=== PATIENT | female | born 1985 | race American Indian/Alaskan Native ===

== ENCOUNTER 2019-07-22 08:32 | Inpatient (IN) | payer OTHER ==
[2019-07-22] MEDS ORDERED: TERBUTALINE 1 MG/1 ML INJ SUB-Q PRN (08:44)
[2019-07-22] MEDS ORDERED: ePHEDrine SULFATE 50 MG/1 ML INJ IV PRN (08:44)
[2019-07-22] MEDS ORDERED: fentaNYL 100 MCG/2 ML INJ IV PRN (08:44)
[2019-07-22] MEDS ORDERED: LIDOCAINE (2%) 20 MG/1 ML VIAL 20 ML MDV INFILTRATI ONE (08:44)
--- NOTE | 2019-07-22 08:58 | History and Physical Report ---
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 (reviewed today): VITAMIN D () PLUS 27-1 MG ORAL TABLET ( VIT-FE FUMARATE-FA) 1 po Current Allergies (reviewed today): * PEANUTS (Critical) * BLUEBERRIES (Critical) * CRANBERRIES (Critical) Laboratory Results Routine Urinalysis Leukocytes: negative Nitrite: negative Urobilinogen: negative Protein: negative Blood: negative Ketone: negative Bilirubin: negative Glucose: negative Urine HCG: positive PHYSICAL EXAM HEENT: PERRLA, normal conjunctiva, external nose and nasal mucosa normal, oropharynx clear Neck/Thyroid: supple, thyroid normal Skin no significant abnormal lesions or rashes Chest: respiratory effort normal, clear to auscultation Breasts: normal without skin changes or masses CV: regular, normal S1-S2, no murmur, no rub, no gallop Abdomen: normal bowel sounds, soft, nontender, no HSM Musculoskeletal: grossly normal ROM in joints, no joint tenderness or muscle weakness Neuro: grossly normal DTRs, sensation, strength, cranial nerves Extremities: no clubbing, cyanosis, or edema 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 Vulva/Vagina: No lesions, normal BUS, normal rugae Cervix: No lesions; no cervical motion tenderness Uterus: normal size and position, midline, mobile Adnexae: no masses or tenderness Rectovaginal: no masses or tenderness Past History - Obstetrical History Expected Date of Delivery: 08/05/19 Actual Gestation: 38 Week(s) 0 Day(s) : 2 Para: 0 Hx # Term Pregnancies: 0 Number of Pregnancies: 0 Spontaneous Abortions: 1 Induced : 0 Number of Living Children: 0 Medications and Allergies Allergies Allergy/AdvReac Type Severity Reaction Status Date / Time No Known Allergies Allergy Unverified 07/22/19 09:05 - Physical Exam Breasts: Positive: deferred Cardiovascular: Regular rate Lungs: Positive: Clear to auscultation Abdomen: Positive: normal appearance, soft, normal bowel sounds. Negative: distention, tenderness Genitourinary (Female): Positive: normal external genitalia Vulva: both: normal Vagina: Positive: normal moisture. Negative: discharge Cervix: Negative: lesion, discharge Uterus: Positive: normal size, normal contour Adnexa: both: normal Anus/Rectum: Positive: normal perianal skin, heme negative. Negative: rectal mass, hemorrhoids Extremities: Deep Tendon Reflex Grade: Normal +2 - Obstetrical FHR: category 1 Uterine Contraction Monitor Mode: External Cervical Dilatation: 0 Cervical Effacement Percentage: 70 station: -2 Uterine Contraction Pattern: Irregular Uterine Tone Measurement Phase: Resting Uterine Contraction Intensity: Mild Results Result Diagrams: 07/22/19 10:55 All other labs normal. GBS NEGATIVE Current OB Labs Blood Type: A (09/20/2018) Rh Type: positive (09/20/2018) Rh Antibody Screen: negative (09/20/2018) Hgb: 13.5 (09/20/2018) Hct: 40.0 (09/20/2018) Platelets: 192 (09/20/2018) Rubella: immune (09/20/2018) RPR: nonreactive (09/20/2018) Hep B Surface Antigen: negative (09/20/2018) HIV: negative (09/20/2018) Pap Smear: normal (01/16/2019) Optional Labs Sickle Cell: negative (10/09/2018) Cystic Fibrosis: negative (10/09/2018) TSH: 1.42 (09/20/2018) Assessment and Plan 34yo @ 38 weeks Twins Di/Di for IOL GBS negative Orders in EMR Dr.Meziere elaine. POC discussed with pt and family. They understand the nature of serial IOL and the poss need for operative delivery. All questions addressed. - Patient Problems (1) Twin , dichorionic/diamniotic, third trimester Onset Date: ~07/22/19 Current Visit: Yes Status: Acute Plan to address problem: IOL today per AMFM recommendation 38.0-38.6 weeks
[2019-07-22] MEDS ORDERED: OXYTOCIN 20 UNIT/1000ML DRIP 20 UNITS/1,000 ML BAG IV SCH (09:00)
[2019-07-22] MEDS ORDERED: LACTATED RINGERS 1,000 ML IV SCH (09:00)
[2019-07-22] MEDS ORDERED: OXYTOCIN DRIP 30 UNITS/500 ML BAG IV SCH (09:00)
--- NOTE | 2019-07-22 11:08 | Ultrasound Report ---
ULTRASOUND OBSTETRIC LIMITED INDICATION / CLINICAL INFORMATION: Twin gestation, presentation, well-being. TECHNIQUE: Transabdominal ultrasound imaging. COMPARISON: None available. FINDINGS: TWIN A: HEART RATE (beats per minute): 143 AMNIOTIC FLUID INDEX (cm) = not measured PRESENTATION: Cephalic. TWIN B HEART RATE (beats per minute): 135 AMNIOTIC FLUID INDEX (cm) = not measured PRESENTATION: Cephalic. IMPRESSION: Twin gestation both in cephalic presentation. No acute abnormality is detected. Signer Name: Hector Barker Jr, MD Signed: 07/22/2019 11:04 AM Workstation Name: [id number]
[2019-07-22 11:50] LABS: Hematocrit 42.6 % (30.3-42.9); Hemoglobin 14.3 gm/dl (10.1-14.3); Mean Corpuscular HGB Conc 34 % (30-34); Mean Corpuscular Volume 86 fl (79-97); Red Blood Count 4.93 M/mm3 (3.65-5.03); Red Cell Distribution Width 14.2 % (13.2-15.2)
[2019-07-22 13:53] LABS: Platelet Count 73 K/mm3 (140-440)
[2019-07-22] MEDS ORDERED: DINOPROSTONE 10 MG VAG SUPP VG ONE (18:30)
--- NOTE | 2019-07-22 19:09 | Progress Note ---
Assessment and Plan - Patient Problems (1) Twin , dichorionic/diamniotic, third trimester Onset Date: ~07/22/19 Current Visit: Yes Status: Acute Plan to address problem: Pitocin infused until 1700 d/c for PM care and diet. Cervidil place @ [address] drawn. Exp thrombocytopenia to pt and family, plt activity with clotting, and that the ct must be over 100 for pt to have an epidural. All questions were addressed and answered. She is aware if repeat is also low she cannot have regional anesthesia and if operative delivery is indicated general anesthesia will be utilized. There was significant cervical chg despite no dilation, 90% effacement and vertex is -1 and well applied to the cervix. 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 (reviewed today): VITAMIN D () PLUS 27-1 MG ORAL TABLET ( VIT-FE FUMARATE-FA) 1 po Current Allergies (reviewed today): * PEANUTS (Critical) * BLUEBERRIES (Critical) * CRANBERRIES (Critical) Laboratory Results Routine Urinalysis Leukocytes: negative Nitrite: negative Urobilinogen: negative Protein: negative Blood: negative Ketone: negative Bilirubin: negative Glucose: negative Urine HCG: positive PHYSICAL EXAM HEENT: PERRLA, normal conjunctiva, external nose and nasal mucosa normal, oropharynx clear Neck/Thyroid: supple, thyroid normal Skin no significant abnormal lesions or rashes Chest: respiratory effort normal, clear to auscultation Breasts: normal without skin changes or masses CV: regular, normal S1-S2, no murmur, no rub, no gallop Abdomen: normal bowel sounds, soft, nontender, no HSM Musculoskeletal: grossly normal ROM in joints, no joint tenderness or muscle weakness Neuro: grossly normal DTRs, sensation, strength, cranial nerves Extremities: no clubbing, cyanosis, or edema 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/Vagina: No lesions, normal BUS, normal rugae Cervix: No lesions; no cervical motion tenderness Uterus: normal size and position, midline, mobile Adnexae: no masses or tenderness Rectovaginal: no masses or tenderness Patient reports: movement normal Objective - Vital Signs Vital Signs: Vital Signs - 12hr 07/22/19 07/22/19 07/22/19 09:42 10:20 12:49 Temperature Pulse Rate 93 H 93 H 86 Respiratory 18 Rate Blood Pressure 109/70 109/71 Blood Pressure 109/70 [Left] O2 Sat by Pulse Oximetry 07/22/19 07/22/19 07/22/19 12:50 12:54 12:56 Temperature 97 F L Pulse Rate 86 93 H Respiratory 18 Rate Blood Pressure Blood Pressure [Left] O2 Sat by Pulse 97 94 Oximetry 07/22/19 07/22/19 07/22/19 12:59 13:04 13:07 Temperature Pulse Rate 84 79 103 H Respiratory Rate Blood Pressure Blood Pressure [Left] O2 Sat by Pulse 98 96 93 Oximetry 07/22/19 07/22/19 07/22/19 13:09 13:13 13:14 Temperature Pulse Rate 87 87 86 Respiratory Rate Blood Pressure Blood Pressure [Left] O2 Sat by Pulse 96 94 95 Oximetry 07/22/19 07/22/19 07/22/19 13:19 13:20 13:24 Temperature Pulse Rate 82 87 82 Respiratory Rate Blood Pressure Blood Pressure [Left] O2 Sat by Pulse 95 92 95 Oximetry 07/22/19 07/22/19 07/22/19 13:27 13:29 13:33 Temperature Pulse Rate 80 95 H 89 Respiratory Rate Blood Pressure Blood Pressure [Left] O2 Sat by Pulse 93 94 93 Oximetry 07/22/19 07/22/19 07/22/19 13:34 13:39 13:44 Temperature Pulse Rate 81 85 85 Respiratory Rate Blood Pressure Blood Pressure [Left] O2 Sat by Pulse 95 95 97 Oximetry 07/22/19 07/22/19 07/22/19 13:49 13:50 13:54 Temperature Pulse Rate 89 77 80 Respiratory Rate Blood Pressure 108/69 Blood Pressure [Left] O2 Sat by Pulse 97 96 Oximetry 07/22/19 07/22/19 07/22/19 13:57 13:59 14:04 Temperature Pulse Rate 85 81 90 Respiratory Rate Blood Pressure Blood Pressure [Left] O2 Sat by Pulse 94 96 97 Oximetry 11/04/19 11/04/19 11/04/19 14:09 14:14 14:19 Temperature Pulse Rate 84 89 101 H Respiratory Rate Blood Pressure Blood Pressure [Left] O2 Sat by Pulse 98 98 95 Oximetry 07/22/19 07/22/19 07/22/19 14:20 14:25 14:30 Temperature Pulse Rate 96 H 88 113 H Respiratory Rate Blood Pressure Blood Pressure [Left] O2 Sat by Pulse 94 98 96 Oximetry 07/22/19 07/22/19 07/22/19 14:35 14:36 14:40 Temperature Pulse Rate 103 H 86 89 Respiratory Rate Blood Pressure Blood Pressure [Left] O2 Sat by Pulse 97 94 95 Oximetry 07/22/19 07/22/19 07/22/19 14:45 14:50 14:51 Temperature Pulse Rate 75 79 85 Respiratory Rate Blood Pressure 109/69 Blood Pressure [Left] O2 Sat by Pulse 96 97 Oximetry 07/22/19 07/22/19 07/22/19 14:55 15:00 15:03 Temperature Pulse Rate 80 89 79 Respiratory Rate Blood Pressure Blood Pressure [Left] O2 Sat by Pulse 96 96 94 Oximetry 07/22/19 07/22/19 07/22/19 15:05 15:09 15:10 Temperature Pulse Rate 79 76 81 Respiratory Rate Blood Pressure Blood Pressure [Left] O2 Sat by Pulse 95 94 95 Oximetry 07/22/19 07/22/19 07/22/19 15:15 15:16 15:20 Temperature Pulse Rate 91 H 79 82 Respiratory Rate Blood Pressure Blood Pressure [Left] O2 Sat by Pulse 96 94 96 Oximetry 07/22/19 07/22/19 07/22/19 15:25 15:27 15:30 Temperature 97.9 F Pulse Rate 82 85 Respiratory 18 Rate Blood Pressure Blood Pressure [Left] O2 Sat by Pulse 95 96 Oximetry 07/22/19 07/22/19 07/22/19 15:35 15:39 15:40 Temperature Pulse Rate 84 89 86 Respiratory Rate Blood Pressure Blood Pressure [Left] O2 Sat by Pulse 97 94 94 Oximetry 07/22/19 07/22/19 07/22/19 15:45 15:50 15:55 Temperature Pulse Rate 79 77 98 H Respiratory Rate Blood Pressure 112/71 Blood Pressure [Left] O2 Sat by Pulse 97 98 97 Oximetry 07/22/19 07/22/19 07/22/19 16:00 16:05 16:10 Temperature Pulse Rate 74 78 75 Respiratory Rate Blood Pressure Blood Pressure [Left] O2 Sat by Pulse 97 100 98 Oximetry 07/22/19 07/22/19 07/22/19 16:15 16:20 16:25 Temperature Pulse Rate 86 83 79 Respiratory Rate Blood Pressure Blood Pressure [Left] O2 Sat by Pulse 97 97 98 Oximetry 07/22/19 07/22/19 07/22/19 16:30 16:35 16:40 Temperature Pulse Rate 79 77 79 Respiratory Rate Blood Pressure Blood Pressure [Left] O2 Sat by Pulse 97 96 96 Oximetry 07/22/19 07/22/19 07/22/19 16:45 16:50 16:51 Temperature Pulse Rate 74 75 75 Respiratory Rate Blood Pressure 118/65 Blood Pressure [Left] O2 Sat by Pulse 97 97 Oximetry 07/22/19 07/22/19 07/22/19 16:55 17:01 17:06 Temperature Pulse Rate 89 91 H 102 H Respiratory Rate Blood Pressure Blood Pressure [Left] O2 Sat by Pulse 98 99 98 Oximetry 07/22/19 07/22/19 07/22/19 17:11 18:46 18:51 Temperature Pulse Rate 105 H 90 82 Respiratory Rate Blood Pressure 108/69 Blood Pressure [Left] O2 Sat by Pulse 97 98 98 Oximetry 07/22/19 18:56 Temperature Pulse Rate 96 H Respiratory Rate Blood Pressure Blood Pressure [Left] O2 Sat by Pulse 98 Oximetry - Exam Breasts: deferred Cardiovascular: Regular rate Lungs: Normal air movement Abdomen: Present: normal appearance, soft, normal bowel sounds. Absent: distention, tenderness Uterus: Present: normal FHR: auscultation normal, category 1 Uterine Contraction Monitor Mode: External Cervical Dilatation: 0 (Baby A vtx well applied in cervix) Cervical Effacement Percentage: 90 station: -1 Uterine Contraction Pattern: Irregular Uterine Tone Measurement Phase: Resting Uterine Contraction Intensity: Mild Extremities: normal Deep Tendon Reflex Grade: Normal +2 - Labs Labs: Abnormal Labs 07/22/19 10:55 Plt Count 73 L Laboratory Results - last 24 hr 07/22/19 07/22/19 10:55 10:55 WBC 8.9 RBC 4.93 Hgb 14.3 Hct 42.6 MCV 86 MCH 29 MCHC 34 RDW 14.2 Plt Count 73 L Blood Type A POSITIVE Antibody Screen Negative
[2019-07-22] MEDS ORDERED: MINERAL OIL 30 ML ORAL LIQD PO PRN (22:00)
[2019-07-22] MEDS ORDERED: ZOLPIDEM 10 MG TAB PO PRN (22:06)
--- NOTE | 2019-07-22 22:16 | Event Note ---
Date: 07/22/19 (Pt has lots of visitors Encouraged rest) Pt repositioned Kd po offered. All questions addressed Cat 1 strip Twins Occasional ctx noted.
[2019-07-23] MEDS ORDERED: BUTORPHANOL 2 MG/1 ML INJ IV PRN (07:46)
--- NOTE | 2019-07-23 07:48 | Progress Note ---
Assessment and Plan 34y/o @ 38+1, IOL day #2. SVE 1cm per RN - Patient Problems (1) 38 weeks gestation of Current Visit: Yes Status: Acute (2) Twin , dichorionic/diamniotic, third trimester Onset Date: ~07/22/19 Current Visit: Yes Status: Acute Plan to address problem: Continue with IOL day #2 Pitocin per protocol. Cont efm/toco Plan for vag delivery in OR w/MD present (3) Thrombocytopenia complicating Current Visit: Yes Status: Acute Plan to address problem: Anesthesia notified. Orders for IV sedation as needed for pain management Subjective - Subjective Date of service: 07/23/19 Principal diagnosis: IUP@38w Di/Di twins IOL Patient reports: movement normal, contractions, no loss of fluid, no vaginal bleeding Objective - Vital Signs Vital Signs: Vital Signs - 12hr 07/22/19 07/22/19 07/22/19 19:51 19:56 20:01 Temperature Pulse Rate 91 H 89 97 H Respiratory Rate Blood Pressure Blood Pressure [Left] O2 Sat by Pulse 98 96 97 Oximetry 07/22/19 07/22/19 07/22/19 20:06 20:11 20:16 Temperature Pulse Rate 98 H 95 H 83 Respiratory Rate Blood Pressure Blood Pressure [Left] O2 Sat by Pulse 96 97 97 Oximetry 07/22/19 07/22/19 07/22/19 20:21 20:26 20:31 Temperature Pulse Rate 88 84 99 H Respiratory Rate Blood Pressure Blood Pressure [Left] O2 Sat by Pulse 97 97 98 Oximetry 07/22/19 07/22/19 07/22/19 20:36 20:41 20:46 Temperature Pulse Rate 97 H 96 H 89 Respiratory Rate Blood Pressure Blood Pressure [Left] O2 Sat by Pulse 97 96 97 Oximetry 07/22/19 07/22/19 07/22/19 20:51 20:56 21:01 Temperature Pulse Rate 96 H 87 89 Respiratory Rate Blood Pressure Blood Pressure [Left] O2 Sat by Pulse 97 98 98 Oximetry 07/22/19 07/22/19 07/22/19 21:06 21:11 21:16 Temperature Pulse Rate 111 H 82 84 Respiratory Rate Blood Pressure Blood Pressure [Left] O2 Sat by Pulse 97 96 97 Oximetry 07/23/19 07/23/19 07/23/19 02:27 02:32 02:34 Temperature Pulse Rate 83 83 88 Respiratory Rate Blood Pressure Blood Pressure [Left] O2 Sat by Pulse 97 99 91 Oximetry 07/23/19 07/23/19 07/23/19 02:37 02:42 02:47 Temperature Pulse Rate 91 H 77 79 Respiratory Rate Blood Pressure Blood Pressure [Left] O2 Sat by Pulse 97 98 99 Oximetry 07/23/19 07/23/19 07/23/19 02:52 02:57 03:02 Temperature Pulse Rate 79 80 86 Respiratory Rate Blood Pressure Blood Pressure [Left] O2 Sat by Pulse 99 99 99 Oximetry 07/23/19 07/23/19 07/23/19 03:07 03:12 03:17 Temperature Pulse Rate 83 81 99 H Respiratory Rate Blood Pressure Blood Pressure [Left] O2 Sat by Pulse 100 99 100 Oximetry 07/23/19 07/23/19 07/23/19 03:20 03:22 03:27 Temperature Pulse Rate 109 H 83 83 Respiratory Rate Blood Pressure Blood Pressure [Left] O2 Sat by Pulse 94 100 100 Oximetry 07/23/19 07/23/19 07/23/19 04:53 04:58 05:03 Temperature Pulse Rate 110 H 98 H 86 Respiratory Rate Blood Pressure Blood Pressure [Left] O2 Sat by Pulse 99 96 97 Oximetry 07/23/19 07/23/19 07/23/19 05:08 05:13 05:18 Temperature Pulse Rate 99 H 86 85 Respiratory Rate Blood Pressure Blood Pressure [Left] O2 Sat by Pulse 96 95 96 Oximetry 07/23/19 07/23/19 07/23/19 05:22 05:23 05:28 Temperature Pulse Rate 93 H 89 86 Respiratory Rate Blood Pressure Blood Pressure [Left] O2 Sat by Pulse 94 95 96 Oximetry 07/23/19 07/23/19 07/23/19 05:29 07:10 07:11 Temperature 98.4 F Pulse Rate 91 H 98 H 96 H Respiratory 18 Rate Blood Pressure 111/64 Blood Pressure 111/64 [Left] O2 Sat by Pulse 94 97 Oximetry 07/23/19 07/23/19 07/23/19 07:15 07:42 07:47 Temperature Pulse Rate 95 H 101 H 94 H Respiratory Rate Blood Pressure Blood Pressure [Left] O2 Sat by Pulse 96 96 96 Oximetry - Exam Breasts: normal Cardiovascular: Regular rate Lungs: Normal air movement Abdomen: Present: normal appearance, soft Vulva: both: normal Uterus: Present: normal, fundal height above umbilicus FHR: category 1 Uterine Contraction Monitor Mode: External Uterine Contraction Pattern: Irregular Uterine Tone Measurement Phase: Resting Extremities: normal Deep Tendon Reflex Grade: Normal +2 - Labs Labs: Abnormal Labs 07/22/19 07/22/19 10:55 19:00 Plt Count 73 L 79 L Laboratory Results - last 24 hr 07/22/19 07/22/19 07/22/19 10:55 10:55 19:00 WBC 8.9 RBC 4.93 Hgb 14.3 Hct 42.6 MCV 86 MCH 29 MCHC 34 RDW 14.2 Plt Count 73 L 79 L Blood Type A POSITIVE Antibody Screen Negative
[2019-07-23] MEDS ORDERED: OXYTOCIN DRIP 30 UNITS/500 ML BAG IV SCH (08:00)
--- NOTE | 2019-07-23 10:35 | Anesthesia Consultation ---
Anesthesia Consult and Med Hx Date of service: 07/23/19 - Airway Anesthetic Teeth Evaluation: Good ROM Head & Neck: Adequate Mental/Hyoid Distance: Adequate Mallampati Class: Class II Intubation Access Assessment: Probably Good - Pulmonary Exam CTA: Yes - Cardiac Exam Cardiac Exam: RRR - Pre-Operative Health Status ASA Pre-Surgery Classification: ASA3 Proposed Anesthetic Plan: Epidural - Pulmonary Hx Smoking: No Hx Asthma: No Hx Respiratory Symptoms: No SOB: No COPD: No Home Oxygen Therapy: No Hx Pneumonia: No Hx Sleep Apnea: No - Cardiovascular System Hx Hypertension: No Hx Coronary Artery Disease: No Hx Heart Attack/AMI: No Hx Angina: No Hx Percutaneous Transluminal Coronary Angioplasty (PTCA): No Hx Cardia Arrhythmia: No Hx Pacemaker: No Hx Internal Defibrillator: No Hx Valvular Heart Disease: No Hx Heart Murmur: No Hx Peripheral Vascular Disease: No - Central Nervous System Hx Seizures: No CVA: No Hx Back Pain: No Hx Psychiatric Problems: No - Gastrointestinal Hx Ulcer: No Hx Gastroesophageal Reflux Disease: No - Endocrine Hx Renal Disease: No Hx End Stage Renal Disease: No Hx Cirrhosis: No Hx Liver Disease: No Hx Insulin Dependent Diabetes: No Hx Non-Insulin Dependent Diabetes: No Hx Thyroid Disease: No Hx Hypothyroidism: No Hx Hyperthyroidism: No - Hematic Hx Anemia: No Hx Sickle Cell Disease: No - Other Systems Hx Alcohol Use: No Hx Substance Use: No Hx Cancer: No Hx Obesity: No
[2019-07-23] MEDS ORDERED: ePHEDrine SULFATE 50 MG/1 ML INJ IV PRN (10:36)
[2019-07-23] MEDS ORDERED: NALOXONE 2 MG/2 ML INJ IV PRN (10:36)
[2019-07-23] MEDS ORDERED: fentaNYL-BUPIV 2 MCG/ML-0.125% 200 MCG/100 ML BAG EPIDURAL SCH (11:00)
--- NOTE | 2019-07-23 13:10 | Procedure Note ---
OB Delivery Note - Delivery Date of Delivery: 07/23/19 Personnel Security Specialist: MARLENY WEBB (Dr. Miguel boone present for ) Estimated blood loss: other (400) - Vaginal Delivery presentation: vertex Delivery position: OA (both babies) Intrapartum events: other(please specify) (twin ) Delivery induction: cervidil Delivery monitor: external FHT, external uterine Route of delivery: Delivery placenta: spontaneous Delivery cord: nuchal cord (both twins with tight NC, somersaulted through ) Episiotomy: none Delivery laceration: 2nd degree Delivery repair: vicryl Anesthesia: epidural Delivery comments: Baby girl A del LESLEY over intact perineum, tight nuchal cord somersaulted through. infant placed on mother's abdomen for skin to skin. 3 vessel cord clamped and cut. Baby B remained vertex. Baby B BOW AROM's clear. Baby girl B delivered [place], Tight nuchal cord somersaulted through. 3 vessel cord clamped and cut. Placenta del intact and complete. One clamp on cord A, no clamp on cord B. 2nd degree laceration repaired with vicryl in usual fashion. Baby A 6#12oz, 8/9 apgars, Baby B 6#12oz, Apgars 8/9. mother and babies remain LDR stable. EBL 400 - A at 1 minute: 8 at 5 minutes: 9 Gender: Female (6#12 Sandhya) B at 1 minute: 8 at 5 minutes: 9 Gender: Female (6#12 Rivka)
[2019-07-23] MEDS ORDERED: IBUPROFEN 600 MG TAB PO ONE (15:29)
[2019-07-23] MEDS ORDERED: BENZOCAINE/MENTHOL 20/0.5% TOP SPRAY 56 GM TP PRN (18:00)
[2019-07-23] MEDS ORDERED: WITCH HAZEL/ GLYCERIN PAD TP PRN (18:00)
[2019-07-23] MEDS ORDERED: LANOLIN/ZINC/DIMETHICONE (LANSINOH) 7 GM TP PRN (18:00)
[2019-07-23] MEDS ORDERED: diphenhydrAMINE 25 MG CAP PO PRN (18:00)
[2019-07-23] MEDS ORDERED: IBUPROFEN 600 MG TAB PO SCH (18:00)
[2019-07-23] MEDS ORDERED: MAGNESIUM HYDROXIDE (MOM) ORAL LIQD UDC PO PRN (18:00)
[2019-07-23] MEDS ORDERED: OXYTOCIN 20 UNIT/1000ML DRIP 20 UNITS/1,000 ML BAG IV SCH (18:00)
[2019-07-23] MEDS ORDERED: ONDANSETRON 4 MG/2 ML INJ IV PRN (18:00)
[2019-07-23] MEDS ORDERED: ACETAMINOPHEN 325 MG TAB PO PRN (18:00)
[2019-07-23] MEDS ORDERED: PROMETHAZINE 25 MG TAB PO PRN (18:00)
--- NOTE | 2019-07-24 06:52 | Discharge Summary ---
Providers - Providers Date of Admission: 07/22/19 08:33 Date of discharge: 07/24/19 (pt asking to d/c today if possible) Attending physician: BAUDILIO RODRÍGUEZ Primary care physician: BAUDILIO RODRÍGUEZ Hospitalization Reason for admission: induction of labor (twins ) Delivery: Episiotomy: none Laceration: none Incision: normal Other procedures: none complications: none Discharge diagnosis: IUP at term delivered [place] baby: twins (girl/girl) Hospital course: uncomplicated twin vaginal delivery Pt on side of bed caring for babies No c/o voiced Desires d/c VSS FF below umb Lochia small Perineum intact H&H pending Pt w/o any s/sx of anemia Pt is aware of Low platelets Doing well s/p vag del P: d/c today with instructions RTO 4 weeks PP care. Condition at discharge: Good Disposition: DC-01 TO HOME OR SELFCARE - Discharge Diagnoses (1) Twin , dichorionic/diamniotic, third trimester Status: Acute (2) Spontaneous vaginal delivery Status: Acute Comment: RTO 4 weeks for PP care Plan - Provider Discharge Summary Activity: routine, no sex for 6 weeks, no heavy lifting 4 weeks, no strenuous exercise Diet: routine Instructions: routine Additional instructions: [] Smoking cessation referral if applicable(refer to patient education folder for contact #) [] Refer to [facility] Booklet Call your doctor immediately for: * Fever > 100.5 * Heavy vaginal bleeding ( >1 pad per hour) * Severe persistent headache * Shortness of breath * Reddened, hot, painful area to leg or breast * Drainage or odor from incision. * Keep incision clean and dry at all times and follow doctor's instructions regarding bathing/showering - Follow up plan Follow up: BAUDILIO RODRÍGUEZ MD [Primary Care Provider] - 08/22/19 (Congratulations! Please call [phone] to schedule your visit in 4 weeks Take Motrin/ibuprofen for pain/cramping Call with concerns. )
[2019-07-24 07:09] LABS: Hematocrit 39.1 % (30.3-42.9); Hemoglobin 12.9 gm/dl (10.1-14.3)
[2019-07-24] MEDS ORDERED: PRENATAL VIT27-FE FUMARATE-FOLIC ACID VIT TAB PO SCH (10:00)
[2019-07-24 18:01] VITALS: BP 100/66
== END 2019-07-24 18:30 | disposition home or self-care (01) | DRG 806 ==
LOC: TRG 08:32 → LD 08:33 → OB 07-23 16:16
PROVIDERS: ADMIT Obstetrics & Gynecology; ATTEND Obstetrics & Gynecology
PROC: 10E0XZZ Delivery of Products of Conception, External Approach (ICD-10-PCS; principal; 2019-07-23)
PROC: 0KQM0ZZ Repair Perineum Muscle, Open Approach (ICD-10-PCS; 2019-07-23)
PROC: 3E0P7VZ Introduction of Hormone into Female Reproductive, Via Natural or Artificial Opening (ICD-10-PCS; 2019-07-23)
PROC: 3E0R3BZ Introduction of Anesthetic Agent into Spinal Canal, Percutaneous Approach (ICD-10-PCS; 2019-07-23)
PROC: 00HU33Z Insertion of Infusion Device into Spinal Canal, Percutaneous Approach (ICD-10-PCS; 2019-07-23)
PROC: 10907ZC Drainage of Amniotic Fluid, Therapeutic from Products of Conception, Via Natural or Artificial Opening (ICD-10-PCS; 2019-07-23)
DX: O69.81X0 Labor and delivery complicated by cord around neck, without compression, not applicable or unspecified (principal); O99.12 Other diseases of the blood and blood-forming organs and certain disorders involving the immune mechanism complicating childbirth; Z37.2 Twins, both liveborn; O30.043 Twin pregnancy, dichorionic/diamniotic, third trimester; O70.1 Second degree perineal laceration during delivery; D69.6 Thrombocytopenia, unspecified; Z3A.38 38 weeks gestation of pregnancy
CPT/HCPCS: 36415; 59200; 76815; 85014; 85018; 85027; 85049; 86850; 86900; 86901; 88307; G0378; J2590; J7120

== ENCOUNTER 2020-08-17 12:43 | Inpatient (IN) | payer OTHER ==
[2020-08-17] MEDS ORDERED: ePHEDrine SULFATE 50 MG/1 ML INJ IV PRN (13:18)
[2020-08-17] MEDS ORDERED: LIDOCAINE (2%) 20 MG/1 ML VIAL 20 ML MDV INFILTRATI NR (13:18)
--- NOTE | 2020-08-17 13:23 | History and Physical Report ---
History of Present Illness Date of examination: 08/17/20 (active labor; 6cm dilated) History of present illness: EDC Confirmation: 08/25/2020 Gestational Age: 38.6 weeks Past History : 4 Past Medical History: Reviewed history from 11/29/2017 and no changes required: G I Bleed Past Surgical History: Reviewed history from 11/29/2017 and no changes required: negative Past Medical History Anesthesia Complications: negative Anemia: negative Autoimmune Disorder: negative Bleeding Disorder: negative Blood Transfusions: negative Breast Disease: negative Diabetes: negative Heart Disease: negative Hypertension: negative Hepatitis/Liver Disease: negative Kidney Disease/UTI: negative Neurologic/Epilepsy/Migraines: negative Phlebitis/Varicosities: negative Psychiatric: negative Pulmonary Disease/Asthma: negative Thyroid Disease: negative Hospitalizations: negative Surgery (Non-dopeman): negative Abnormal PAP: negative KRISHNA Exposure: negative Infertility: negative Uterine Anomaly: negative Uterine Surgery (not C/S): negative Other Gynecologic Problems: negative 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 of genital herpes: yes Partner hx. of genital herpes: yes Rash, Viral, or Febrile illness since last LMP? no Varicella/Chicken Pox Status: Previous Disease TB Risk: no Genetic History ADVANCED MATERNAL AGE Congenital Heart Defect: Mom: no Dad: no Dionicio Disease: Mom: no Dad: no Thalassemia Mom: no Dad: no Neural Tube Defect Mom: no Dad: no Down's Syndrome Mom: no Dad: no Jh-Sachs Mom: no Dad: no Sickle Cell Disease/Trait Mom: no Dad: no Hemophilia Mom: no Dad: no Muscular Dystrophy Mom: no Dad: no Cystic Fibrosis Mom: no Dad: no [place] Chorea Mom: no Dad: no Mental Retardation Mom: no Dad: no Fragile X Mom: no Dad: no Other Genetic/Chromosomal Disorder Mom: no Dad: no Child w/other defect Mom: no Dad: no Enviromental Exposures Xray Exposure: no Medication, drug, or alcohol use since LMP: no Chemical/Other Exposure: no Exposure to Cat Liter: no Hx of Parvovirus (Fifth Disease): no 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 Medications (reviewed today): PLUS 27-1 MG ORAL TABLET ( VIT-FE FUMARATE-FA) 1 po VITAMIN D () Current Allergies (reviewed today): * PEANUTS (Critical) * BLUEBERRIES (Critical) * CRANBERRIES (Critical) Past History - Obstetrical History Expected Date of Delivery: 08/25/20 Actual Gestation: 38 Week(s) 6 Day(s) : 4 Para: 1 (twin gestation ) Hx # Term Pregnancies: 1 Number of Pregnancies: 0 Spontaneous Abortions: 1 Induced : 1 Number of Living Children: 2 Medications and Allergies Allergies Allergy/AdvReac Type Severity Reaction Status Date / Time cranberry Allergy Mild Itching Verified 07/23/19 19:04 peanut Allergy Mild Itching Verified 07/23/19 19:04 blueberry Allergy Itching Verified 07/23/19 19:04 Results Result Diagrams: 08/17/20 14:02 All other labs normal. GBS Negative HBsAg Screen Negative Negative *1 RPR Non Reactive Non Reactive *2 Rubella Antibodies, IgG 4.20 index Immune >0.99 *3 Non-immune <0.90 Equivocal 0.90 - 0.99 Immune >0.99 ABO Grouping A *4 Rh Factor Positive *5 Please note: Prior records for this patient's ABO / Rh type are not available for additional verification. Antibody Screen Negative Negative *6 WBC 8.2 x10E3/uL 3.4-10.8 *7 RBC 5.07 x10E6/uL 3.77-5.28 *8 Hemoglobin 14.4 g/dL 11.1-15.9 *9 Hematocrit 42.1 % 34.0-46.6 *10 MCV 83 fL 79-97 *11 MCH 28.4 pg 26.6-33.0 *12 MCHC 34.2 g/dL 31.5-35.7 *13 RDW 12.8 % 11.7-15.4 *14 Platelets [L] 141 x10E3/uL 150-450 *15 Neutrophils 79 % Not Estab. *16 Lymphs 14 % Not Estab. *17 Monocytes 6 % Not Estab. *18 Eos 1 % Not Estab. *19 Basos 0 % Not Estab. *20 ! Immature Cells <No Reported Value> *21 Neutrophils (Absolute) 6.5 x10E3/uL 1.4-7.0 *22 Lymphs (Absolute) 1.2 x10E3/uL 0.7-3.1 *23 Monocytes(Absolute) 0.5 x10E3/uL 0.1-0.9 *24 Eos (Absolute) 0.0 x10E3/uL 0.0-0.4 *25 Baso (Absolute) 0.0 x10E3/uL 0.0-0.2 *26 ! Immature Granulocytes 0 % Not Estab. *27 ! Immature Grans (Abs) 0.0 x10E3/uL 0.0-0.1 *28 ! NRBC <No Reported Value> *29 Hematology Comments: <No Reported Value> *30 Tests: (2) HB Solu + Rflx Frac (251550) Hemoglobin (Hgb) Solubility Negative Negative *31 Tests: (3) HIV Ag/Ab with Reflex ([id number]) HIV Screen 4th Generation wRfx Non Reactive Non Reactive *32 Tests: (4) HCV Ab w/Rflx to Verification ([id number]) ! HCV Ab <0.1 s/co ratio 0.0-0.9 *33 Tests: (5) Comment: ([id number]) ! Comment: [facility] *34 Non reactive HCV antibody screen is consistent with no HCV infection, unless recent infection is suspected or other evidence exists to indicate HCV infection. Tests: (6) Urine Culture, Routine ([id number]) Urine Culture, Routine Final report *35 Tests: (7) Result ([id number]) ! Result 1 No growth *36 Assessment and Plan 35yo @ 38w6d Active labor Thrombocytopenia GBS Negative All orders in EMR anticipate delivery - Patient Problems (1) Thrombocytopenia complicating Onset Date: ~08/17/20 Current Visit: Yes Status: Acute Plan to address problem: Last visit with hematology plt ct 85 that was on 07-06-20
[2020-08-17] MEDS ORDERED: TERBUTALINE 1 MG/1 ML INJ SUB-Q PRN (14:00)
[2020-08-17] MEDS ORDERED: LACTATED RINGERS 1,000 ML IV SCH (14:00)
[2020-08-17] MEDS ORDERED: ONDANSETRON 4 MG/2 ML INJ IV PRN (14:00)
[2020-08-17] MEDS ORDERED: OXYTOCIN DRIP 30 UNITS/500 ML BAG IV SCH (14:00)
[2020-08-17 14:25] LABS: Hemoglobin 14.9 gm/dl (10.1-14.3); Mean Corpuscular HGB Conc 34 % (30-34); Mean Corpuscular Volume 85 fl (79-97); Red Blood Count 5.15 M/mm3 (3.65-5.03)
[2020-08-17] MEDS ORDERED: fentaNYL 100 MCG/2 ML INJ IV PRN (14:40)
[2020-08-17 14:49] LABS: Platelet Count 86 K/mm3 (140-440)
--- NOTE | 2020-08-17 15:27 | Progress Note ---
Assessment and Plan Anticipate delivery - Patient Problems (1) Thrombocytopenia complicating Onset Date: ~08/17/20 Current Visit: Yes Status: Acute Subjective - Subjective Date of service: 08/17/20 (unmedicated labor) Principal diagnosis: IUP @ 38w6d Interval history: EDC Confirmation: 08/25/2020 Gestational Age: 38.6 weeks Past History : 4 Past Medical History: Reviewed history from 11/29/2017 and no changes required: G I Bleed Past Surgical History: Reviewed history from 11/29/2017 and no changes required: negative Past Medical History Anesthesia Complications: negative Anemia: negative Autoimmune Disorder: negative Bleeding Disorder: negative Blood Transfusions: negative Breast Disease: negative Diabetes: negative Heart Disease: negative Hypertension: negative Hepatitis/Liver Disease: negative Kidney Disease/UTI: negative Neurologic/Epilepsy/Migraines: negative Phlebitis/Varicosities: negative Psychiatric: negative Pulmonary Disease/Asthma: negative Thyroid Disease: negative Hospitalizations: negative Surgery (Non-therapeutic support staff): negative Abnormal PAP: negative KRISHNA Exposure: negative Infertility: negative Uterine Anomaly: negative Uterine Surgery (not C/S): negative Other Gynecologic Problems: negative 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 of genital herpes: yes Partner hx. of genital herpes: yes Rash, Viral, or Febrile illness since last LMP? no Varicella/Chicken Pox Status: Previous Disease TB Risk: no Genetic History ADVANCED MATERNAL AGE Congenital Heart Defect: Mom: no Dad: no Dionicio Disease: Mom: no Dad: no Thalassemia Mom: no Dad: no Neural Tube Defect Mom: no Dad: no Down's Syndrome Mom: no Dad: no Jh-Sachs Mom: no Dad: no Sickle Cell Disease/Trait Mom: no Dad: no Hemophilia Mom: no Dad: no Muscular Dystrophy Mom: no Dad: no Cystic Fibrosis Mom: no Dad: no [place] Chorea Mom: no Dad: no Mental Retardation Mom: no Dad: no Fragile X Mom: no Dad: no Other Genetic/Chromosomal Disorder Mom: no Dad: no Child w/other defect Mom: no Dad: no Enviromental Exposures Xray Exposure: no Medication, drug, or alcohol use since LMP: no Chemical/Other Exposure: no Exposure to Cat Liter: no Hx of Parvovirus (Fifth Disease): no 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 Medications (reviewed today): PLUS 27-1 MG ORAL TABLET ( VIT-FE FUMARATE-FA) 1 po VITAMIN D () Current Allergies (reviewed today): * PEANUTS (Critical) * BLUEBERRIES (Critical) * CRANBERRIES (Critical) Patient reports: movement normal Objective - Vital Signs Vital Signs: Vital Signs - 12hr 08/17/20 08/17/20 08/17/20 13:32 13:41 14:09 Temperature 97.9 F Pulse Rate 86 90 Respiratory 16 Rate Blood Pressure 109/55 114/57 O2 Sat by Pulse Oximetry 08/17/20 08/17/20 08/17/20 14:29 14:34 14:39 Temperature Pulse Rate 89 85 83 Respiratory Rate Blood Pressure O2 Sat by Pulse 99 99 98 Oximetry 08/17/20 08/17/20 14:44 14:49 Temperature Pulse Rate 83 98 H Respiratory Rate Blood Pressure O2 Sat by Pulse 99 99 Oximetry - Exam Breasts: deferred Cardiovascular: Regular rate Lungs: Normal air movement Abdomen: Present: normal appearance, soft. Absent: distention, tenderness Uterus: Present: normal FHR: auscultation normal, category 1 Uterine Contraction Monitor Mode: Internal Cervical Dilatation: 9 (ROM) Cervical Effacement Percentage: 100 (ISE applied) station: -1 Uterine Contraction Pattern: Regular Uterine Tone Measurement Phase: Resting Uterine Contraction Intensity: Strong/Firm Extremities: normal Deep Tendon Reflex Grade: Normal +2 - Labs Labs: Abnormal Labs 08/17/20 14:02 RBC 5.15 H Hgb 14.9 H Hct 44.0 H Plt Count 86 L Laboratory Results - last 24 hr 08/17/20 08/17/20 14:02 14:02 WBC 9.7 RBC 5.15 H Hgb 14.9 H Hct 44.0 H MCV 85 MCH 29 MCHC 34 RDW 14.0 Plt Count 86 L Syphilis IgG Antibody Nonreactive
[2020-08-17] MEDS ORDERED: OXYTOCIN 10 UNIT/1 ML INJ ONE (16:04)
[2020-08-17] MEDS ORDERED: OXYTOCIN 10 UNIT/1 ML INJ IM ONE (16:12)
[2020-08-17] MEDS ORDERED: LANOLIN/ZINC/DIMETHICONE (LANSINOH) 7 GM TP PRN (16:14)
[2020-08-17] MEDS ORDERED: diphenhydrAMINE 25 MG CAP PO PRN (16:14)
[2020-08-17] MEDS ORDERED: ACETAMINOPHEN 325 MG TAB PO PRN (16:14)
[2020-08-17] MEDS ORDERED: MAGNESIUM HYDROXIDE (MOM) ORAL LIQD UDC PO PRN (16:14)
[2020-08-17] MEDS ORDERED: PROMETHAZINE 25 MG TAB PO PRN (16:14)
[2020-08-17] MEDS ORDERED: WITCH HAZEL/ GLYCERIN PAD TP PRN (16:14)
[2020-08-17] MEDS ORDERED: PROMETHAZINE 25 MG RECT SUPP PR PRN (16:14)
--- NOTE | 2020-08-17 16:42 | Procedure Note ---
OB Delivery Note - Delivery Date of Delivery: 08/17/20 Manufacturing Area Manager: CARISA CORREA Estimated blood loss: 500cc - Vaginal Delivery presentation: vertex Delivery position: OA Intrapartum events: other(please specify) (gestational thrombocytopenia) Delivery induction: none Delivery augmentation: rupture of membranes Delivery monitor: external uterine, internal FHT Route of delivery: Delivery placenta: spontaneous Delivery cord: nuchal cord, 3 umbilical vessels Episiotomy: none Delivery laceration: 2nd degree (not repaired per pt request) Anesthesia: none Delivery comments: Counts correct X 2 CHERYL present live born female over intact perineum CAN X 1 reduced Baby placed skin to skin Cord clamped and cut. Placenta and membrane delivered and intact, 3 vessel cord. Pit IVFs and IM due to poor infusion of IV. 2nd degree laceration Pt requests to allow natural healing if there is no bleeding. Area was hemo stable. Reviewed care of laceration with pt. 8/8, EBL 500, Wgt 8-7. Mom and baby remain LDR stable - A at 1 minute: 8 at 5 minutes: 8 Infant Gender: Female (Collette wgt 8-7)
[2020-08-17] MEDS ORDERED: MINERAL OIL 30 ML ORAL LIQD PO PRN (22:00)
[2020-08-17] MEDS: DOCUSATE SODIUM 100 MG CAP PO SCH (23:10)
[2020-08-18] MEDS: IBUPROFEN 800 MG TAB PO SCH ×2 (05:48→10:00)
[2020-08-18] MEDS ORDERED: DIPHtheria,PERTUSSIS(ACELL),TETANUS VACCINE/PF 0.5 ML VIAL IM ONE (06:00)
--- NOTE | 2020-08-18 08:14 | Discharge Summary ---
Providers - Providers Date of Admission: 08/17/20 13:58 Date of discharge: 08/18/20 (Pt stable for discharge home.) Attending physician: COLEMAN OLVERA Primary care physician: BAUDILIO RODRÍGUEZ Hospitalization Reason for admission: active labor Delivery: Episiotomy: none Laceration: none Other procedures: none complications: none Discharge diagnosis: IUP at term delivered [place] baby: female Hospital course: S: Pt doing well. Ambulating, voiding, and passing flatus without difficulty. BC: Vasectomy. O: VSS. Adequate I&O's. Fundus firm, minimal bleeding noted. A: 35 y.o. s/p , stable , stable for discharge home. P: Discharge home with instructions. To schedule visit in 4 weeks. Condition at discharge: Good Disposition: DC-01 TO HOME OR SELFCARE Plan - Provider Discharge Summary Activity: routine, no sex for 6 weeks, no heavy lifting 4 weeks, no strenuous exercise Diet: routine Instructions: routine Additional instructions: [] Smoking cessation referral if applicable(refer to patient education folder for contact #) [] Refer to [facility] Booklet Call your doctor immediately for: * Fever > 100.5 * Heavy vaginal bleeding ( >1 pad per hour) * Severe persistent headache * Shortness of breath * Reddened, hot, painful area to leg or breast * Drainage or odor from incision. * Keep incision clean and dry at all times and follow doctor's instructions regarding bathing/showering - Follow up plan Follow up: BAUDILIO RODRÍGUEZ MD [Primary Care Provider] - 09/22/20 (Congratulations! Please schedule your visit in the office in 4 weeks. If you have any questions or concerns after discharge, please do not hesitate to call the office at [phone].)
[2020-08-18 09:29] LABS: Hematocrit 41.3 % (30.3-42.9); Hemoglobin 13.9 gm/dl (10.1-14.3)
[2020-08-18] MEDS: DOCUSATE SODIUM 100 MG CAP PO SCH (10:00)
[2020-08-18] MEDS ORDERED: PRENATAL VIT27-FE FUMARATE-FOLIC ACID VIT TAB PO SCH (10:00)
[2020-08-18] MEDS ORDERED: MEASLES, MUMPS & RUBELLA 12,500 UNIT/0.5 ML VACCINE SUB-Q ONE (16:14)
[2020-08-18 17:19] VITALS: BP 104/70
== END 2020-08-18 18:45 | disposition home or self-care (01) | DRG 807 ==
LOC: OB 12:43 → APU 12:43 → TRG 12:43 → LD 13:18 → TRG 13:57 → LD 13:58 → OB 17:57
PROVIDERS: ADMIT Obstetrics & Gynecology; ATTEND Obstetrics & Gynecology
PROC: 10E0XZZ Delivery of Products of Conception, External Approach (ICD-10-PCS; principal; 2020-08-17)
PROC: 3E0234Z Introduction of Serum, Toxoid and Vaccine into Muscle, Percutaneous Approach (ICD-10-PCS; 2020-08-18)
DX: O99.12 Other diseases of the blood and blood-forming organs and certain disorders involving the immune mechanism complicating childbirth (principal); Z37.0 Single live birth; Z3A.38 38 weeks gestation of pregnancy; D69.6 Thrombocytopenia, unspecified; Z23 Encounter for immunization; Z91.010 Allergy to peanuts; Z91.018 Allergy to other foods; O69.81X0 Labor and delivery complicated by cord around neck, without compression, not applicable or unspecified; O70.1 Second degree perineal laceration during delivery
CPT/HCPCS: 36415; 85014; 85018; 85027; 86592; 86850; 86900; 86901; G0378; J2590